=== PATIENT | male | born 1955 | race Caucasian/White ===

== ENCOUNTER 2017-05-15 14:15 | Emergency (ER) | payer BC ==
[~2017-05-15] VITALS: Ht 177.8 cm; Wt 79.7 kg
[2017-05-15 14:44] LABS: ADD MIUA? YES; BILIRUBIN NEGATIVE; BLOOD NEGATIVE; COLOR YELLOW ((YELLOW)); GLUCOSE (STRIP) NEGATIVE; KETONES 5; LEUKOCYTES NEGATIVE; NITRITE NEGATIVE; PROTEIN (STRIP) NEGATIVE; SPECIFIC GRAVITY 1.025 (1.000-1.030)
[2017-05-15 14:47] LABS: HEMATOCRIT 45.4 % (38.0-50.0); MCH 28.6 PG (29.0-34.0); MCHC 33.7 G/DL (30.0-36.0); MCV 84.9 FL (86-99); MEAN PLAT.VOLUME 10.1 uM^3 (9.0-12.4); PLATELET COUNT 211 K/uL (156-360); RBC DIS.WIDTH-CV 12.5 % (11.8-14.6); RBC DIS.WIDTH-SD 38.7 % (39-53); RED BLOOD COUNT 5.35 M/uL (4.00-5.50); WHITE BLOOD COUNT 11.3 K/uL (4.1-10.2)
[2017-05-15 14:49] LABS: BACTERIA RARE /HPF; CALCIUM OXALATE CRYSTALS 1+ /HPF; EPITHELIAL CELLS NONE SEEN /HPF; MUCUS 2+ /LPF; RED BLOOD CELLS 0-5 /HPF (0-5); UCUL ADDED? NO; WHITE BLOOD CELLS 0-5 /HPF (0-5)
[2017-05-15 14:57] LABS: CHLORIDE 102 mEq/L (99-109); POTASSIUM 3.8 mEq/L (3.7-5.4); SODIUM 138 mEq/L (136-147)
[2017-05-15 14:59] LABS: GLUCOSE 146 mg/dL (70-99)
[2017-05-15 15:01] LABS: ANION GAP 8 MEQ/L (2-14)
[2017-05-15 15:03] LABS: ALKALINE PHOSPHATASE 86 IU/L (3-129); GFR ESTIMATE (CALCULATED) > 59 mL/min/
[2017-05-15 15:04] LABS: UREA NITROGEN (BUN) 17 mg/dL (9-23)
[2017-05-15 15:32] LABS: DIRECT BILIRUBIN 0.4 mg/dL (0.0-0.3); LIPASE 27 U/L (1.0-51.0)
[2017-05-15] MEDS ORDERED: CIPRO500 MG PO (18:29)
[2017-05-15] MEDS ORDERED: FLAGYL500 MG PO (18:29)
[2017-05-15 18:44] VITALS: BP 138/80
[2017-05-15] MEDS ORDERED: AUGMENTIN875 MG PO (19:11)
== END 2017-05-15 19:19 | disposition home or self-care (01) ==
LOC: EME 14:15
DX: K57.32 Diverticulitis of large intestine without perforation or abscess without bleeding (principal); R10.32 Left lower quadrant pain; R10.13 Epigastric pain
CPT/HCPCS: 74177; 80048 91; 80053; 80076; 81003; 82248; 83690; 85027; 99281; 99284; J7030